=== PATIENT | female | born 1960 | race Caucasian/White ===

== ENCOUNTER 2017-03-05 11:52 | Emergency (ER) | payer BC ==
[2017-03-05] MEDS ORDERED: HYDROMORPHONE HCL 1 MG/ML CPJ IVP ONE ×2 (11:54→13:42)
[2017-03-05] MEDS ORDERED: ONDANSETRON HCL IV 4 MG/2 ML VIAL IVP ONE ×2 (11:54→14:54)
--- NOTE | 2017-03-05 11:59 | Emergency Department Record ---
History of Present Illness - General Chief complaint: Female Urogenital Problem Stated complaint: PASSING KIDNEY STONE Time Seen by Provider: 03/05/17 11:54 Source: Patient Mode of Arrival: Wheelchair Limitations: No limitations - History of Present Illness Initial comments: 56 yo female presents to ED with a CC of right sided flank pain that worsened this morning. Patient was diagnosed with 5 mm ureteral calculus 3 days ago at [facility] via CT imaging, has an appointment with Dr. Duvall in 3 hours but was unable to wait due to her pain symptoms worsening. Patient reports taking [place] x 2 prior to arrival that did not help her symptoms at all. Patient denies fevers, chills, nausea, or vomiting symptoms. MD Complaint: Other Onset/Timin -: Days(s) Radiation: R flank Severity: Severe Quality: Sharp, Stabbing Consistency: Intermittent Improves with: None Worsens with: None Patient : No Associated Symptoms: Denies other symptoms - Related Data Home Medications Medication Instructions Recorded Confirmed Last Taken Ascorbic Acid 500 mg PO DAILY 03/05/17 03/05/17 Unknown Aspirin 325 mg PO DAILY 03/05/17 03/05/17 Unknown Calcium Carbonate/Vitamin D3 1 each PO BID 03/05/17 03/05/17 Unknown [Calcium 500-Vit D3 200 Tablet] Cholecalciferol (Vitamin D3) 1,000 unit PO DAILY 03/05/17 03/05/17 Unknown [Vitamin D3] Hydrocodone/Acetaminophen 1 tab PO ASDIR 03/05/17 03/05/17 Unknown [Hydrocodone/Acetaminophen 5mg/325mg] Lidocaine Patch [Lidoderm] 1 each TOP DAILY 03/05/17 03/05/17 Unknown Metoprolol Succinate [Toprol Xl] 25 mg PO DAILY 03/05/17 03/05/17 Unknown Ondansetron [Zofran Odt] 4 mg PO Q8H 03/05/17 03/05/17 03/05/17 Tamsulosin HCl [Flomax] 0.4 mg PO DAILY 03/05/17 03/05/17 Unknown Allergies Allergy/AdvReac Type Severity Reaction Status Date / Time amoxicillin Allergy PT UNSURE Verified 03/05/17 12:02 OF REACTION cefuroxime Allergy PT UNSURE Verified 03/05/17 12:02 OF REACTION clavulanic acid Allergy PT UNSURE Verified 03/05/17 12:02 [From Augmentin] OF REACTION esomeprazole [From Nexium] Allergy PT UNSURE Verified 03/05/17 12:02 OF REACTION levofloxacin [From Levaquin] Allergy PT UNSURE Verified 03/05/17 12:02 OF REACTION Review of Systems Constitutional: Denies: Chills, Fever, Malaise, Night sweats Eyes: Denies: Eye discharge, Eye pain ENT: Denies: Congestion, Ear pain, Epistaxis Respiratory: Denies: Cough, Dyspnea Cardiovascular: Denies: Chest pain, Dyspnea on exertion Endocrine: Denies: Fatigue, Heat or cold intolerance Gastrointestinal: Denies: Abdominal pain, Constipation, Nausea, Vomiting Genitourinary: Reports: Hematuria. Denies: Frequency, Incontinence Musculoskeletal: Reports: Back pain. Denies: Arthralgia, Gout, Joint swelling Skin: Denies: Bruising, Change in color Neurological: Denies: Abnormal gait, Confusion, Headache, Seizure Psychiatric: Denies: Anxiety Physical Exam - General General Appearance: Alert, Oriented x3, Cooperative, Severe distress (due to pain symptoms) Limitations: No limitations - Head Head exam: Atraumatic, Normocephalic, Normal inspection Head exam detail: negative: Abrasion, Contusion, Morejon's sign, General tenderness, Hematoma, Laceration - Eye Eye exam: Normal appearance. negative: Conjunctival injection, Periorbital swelling, Periorbital tenderness, Scleral icterus - ENT Ear exam: negative: Auricular hematoma, Auricular trauma Nasal Exam: negative: Active bleeding, Discharge, Dried blood, Foreign body Mouth exam: negative: Drooling, Laceration, Muffled voice, Tongue elevation - Neck Neck exam: Normal inspection. negative: Meningismus, Tenderness - Respiratory Respiratory exam: Normal lung sounds bilaterally. negative: Rales, Respiratory distress, Rhonchi, Stridor - Cardiovascular Cardiovascular Exam: Regular rate, Normal rhythm, Normal heart sounds - GI/Abdominal GI/Abdominal exam: Soft. negative: Rebound, Rigid, Tenderness - Rectal Rectal exam: Deferred - exam: Deferred - Extremities Extremities exam: Normal inspection. negative: Pedal edema, Tenderness - Back Back exam: Reports: CVA tenderness (R) - Neurological Neurological exam: Alert, Oriented X3. negative: Motor sensory deficit - Psychiatric Psychiatric exam: Anxious - Skin Skin exam: Normal color. negative: Abrasion Type of lesion: negative: abrasion Course - Reevaluation(s) Reevaluation #1: 03/05/17 11:59 CT Abdomen and Pelvis 03/02/17: 5 mm distal ureteral calculus with minimal hydronephrosis present Reevaluation #2: 03/05/17 12:39 Labs reviewed and are grossly unremarkable for an acute process, UA pending. Patient's pain symptoms not relieved with Dilaudid, Valium and Toradol ordered IV following renal function results. Portable US is being performed. Will continue to observe. Reevaluation #3: 03/05/17 13:34 US Renals: Moderate right hydronephrosis, normal left. Reevaluation #4: 03/05/17 13:42 Patient was reassessed, pain worsened. Dilaudid re-ordered for analgesia. Case was discussed with Dr. Gaviria, will initiate transfer for pain control and likely elective surgery for stone removal. Reevaluation #5: 03/05/17 14:50 Case was discussed with Dr. aRe, will accept transfer ED-ED for Urologic evaluation. Medical Decision Making - Lab Data Result diagrams: 03/05/17 12:00 03/05/17 12:00 Disposition Disposition: Transfer Clinical Impression: Ureteral calculus Disposition: Home, Self-Care Transfer To: [facility] Reason For Transfer: Obstructed Kidney Stone, Urological consultation Accepting Physician: Butch Time Discussed w/Accepting Physician: 14:50 Condition: (2) Stable Forms: Patient Portal Access Time of Disposition: 14:50
[2017-03-05 12:07] LABS: BASO % 0.4 % (0-6); EOS % 0.7 % (0-6); GRAN % 74.5 % (47-80); HEMATOCRIT 40.7 % (35.0-47.0); HEMOGLOBIN 13.7 gm/dl (11.6-16.0); LYMPH % 14.7 % (16-45); MEAN CELL VOLUME 88.5 fl (81-97); MEAN CORPUSCULAR HEMOGLOBIN 29.8 pg (27-33); MEAN CORPUSCULAR HGB CONC 33.7 g/dl (32-36); MEAN PLATELET VOLUME 10.5 fl (7.4-10.4); MONO % 9.7 % (0-9); PLATELET COUNT 176 K/uL (130-400); RED CELL DISTRIBUTION WIDTH 12.2 % (11.5-14.5); WHITE BLOOD COUNT W/O DIFF 5.6 K/uL (4.2-12.2)
[2017-03-05 12:19] LABS: ALB/GLOB RATIO 1.4 (1.1-1.8); ALBUMIN 4.9 gm/dL (3.5-5.0); ALKALINE PHOSPHATASE 95 U/L (38-126); ALT/SGPT 44 U/L (9-52); ANION GAP 13.6 (7-16); AST/SGOT 37 U/L (14-36); BILIRUBIN,TOTAL 0.63 mg/dL (0.2-1.3); BLOOD UREA NITROGEN 13 mg/dL (7-17); CARBON DIOXIDE 25.4 mmol/L (22-30); CREATININE 0.8 mg/dL (0.52-1.04); EST GLOMERULAR FILTRATION RATE > 60 ml/min; GLUCOSE,RANDOM 123 mg/dL (70-110); TOTAL PROTEIN 8.3 gm/dL (6.3-8.2)
[2017-03-05] MEDS ORDERED: KETOROLAC 30 MG/ML VIAL IVP ONE (12:22)
[2017-03-05] MEDS ORDERED: DIAZEPAM 5 MG/1 ML TUBX IVP ONE (12:22)
[2017-03-05 13:03] LABS: URINE APPEARANCE CLEAR; URINE BILIRUBIN NEGATIVE (NEGATIVE); URINE BLOOD SMALL (NEGATIVE); URINE COLOR YELLOW; URINE GLUCOSE (UA) NEGATIVE (NEGATIVE); URINE KETONE 15 mg/dL (NEGATIVE); URINE LEUKOCYTE ESTERASE NEGATIVE (NEGATIVE); URINE NITRITE NEGATIVE (NEGATIVE); URINE PROTEIN NEGATIVE (NEGATIVE); URINE UROBILINOGEN 0.2 E.U./dL (0.20 - 1.00)
[2017-03-05 13:14] LABS: URINE AMORPHOUS SEDIMENT 1+; URINE BACTERIA FEW; URINE SQUAMOUS EPITHELIAL CELL 0 - 2 /hpf; URINE WBC 0 - 2 (0-2/hpf)
[2017-03-05] MEDS ORDERED: 0.9 % SODIUM CHLORIDE 1000ML 1,000 ML IV SCH (13:45)
[2017-03-05] MEDS ORDERED: METOCLOPRAMIDE HCL 10 MG/2 ML VIAL IVP ONE (13:50)
[2017-03-05] MEDS ORDERED: FENTANYL PF 100MCG/2ML VIAL IVP ONE (14:41)
[2017-03-05] MEDS ORDERED: DIPHENHYDRAMINE HCL IV 50 MG/ML VIAL IVP ONE (15:21)
--- NOTE | 2017-03-07 00:29 | ULTRASOUND REPORT ---
EXAM: ULTRASOUND RENAL HISTORY: RIGHT FLANK PAIN. KIDNEY STONE HISTORY. TECHNIQUE: Routine ultrasound examination of the urinary bladder and kidneys is performed. COMPARISON: None. FINDINGS: The prevoid urinary bladder is mildly distended with a volume of 79 mL. No focal bladder wall abnormality is noted. The postvoid bladder volume is 2 mL. Each kidney is visualized and smoothly marginated. The right kidney measures 11.5 cm in length and the left measures 11.1 cm in length. No cystic nor contour -deforming solid renal mass. No left hydronephrosis. There is moderate right hydronephrosis and dilatation of the proximal right ureter. No definite obstructing lesion is seen. The right kidney is otherwise normal in appearance. IMPRESSION: 1. MODERATE DILATATION OF THE RIGHT INTRARENAL COLLECTING SYSTEM AND PROXIMAL RIGHT URETER WITHOUT DEFINITE OBSTRUCTING LESION DEMONSTRATED. 2. NORMAL SONOGRAPHIC APPEARANCE OF THE LEFT KIDNEY. 3. NO FOCAL URINARY BLADDER ABNORMALITY NOTED, NOR IS THERE SIGNIFICANT POSTVOID URINARY BLADDER RESIDUAL. JOB NUMBER: [id number] MTDD
== END 2017-03-05 15:26 | disposition home or self-care (01) ==
LOC: ER 11:52
DX: N13.2 Hydronephrosis with renal and ureteral calculous obstruction (principal)
CPT/HCPCS: 99285 ×2; 96376; 96374; 96375; 96361; 85025; 80053; 81001; 76775; J1885; J2405; J3010; J1170; J1200; J2765; J3360; J7030